=== PATIENT | female | born 1990 | race Hispanic/Latino ===

== ENCOUNTER 2016-09-05 22:15 | Emergency (ER) | payer SELFPAY ==
--- NOTE | 2016-09-05 23:48 | RAD ---
EXAM DESCRIPTION: Foot,Right 3 Views CLINICAL HISTORY: 26 years ,Female stepped awkward on stairs, heard pop COMPARISON: None. TECHNIQUE: RIGHT foot, Three view FINDINGS: No acute fractures or dislocations are identified. No osseous destructive lesions. No radiopaque foreign object noted. No significant ankle effusion noted. IMPRESSION: No acute fracture or dislocation is identified. Electronically signed by: Sasha Abdalla 09/05/2016 11:47 PM CDT
--- NOTE | 2016-09-06 00:03 | ED.PDOC ---
History of Present Illness - General Chief Complaint: Lower Extremity Injury Stated Complaint: Rt foot pain Time Seen by Provider: 09/05/16 23:57 Source: patient Exam Limitations: no limitations - History of Present Illness Initial Comments: Patient presents after she stepped off of the second step of some stairs and felt a "pop" in her foot. She has pain on the dorsal surface that radiates to the ankle, constant, worse with movement, better with rest, no previous injuries. She says that she cannot walk on it due to the pain. No other complaints. Timing/Duration: 1-3 hours Severity: moderate Improving Factors: rest Worsening Factors: movement Associated Symptoms: denies symptoms Allergies/Adverse Reactions: Allergies NO KNOWN ALLERGY Allergy (Verified 09/05/16 23:24) Home Medications: Ambulatory Orders Flagyl 09/05/16 Review of Systems - Review of Systems Constitutional: States: no symptoms reported EENTM: States: no symptoms reported Respiratory: States: no symptoms reported Cardiology: States: no symptoms reported Gastrointestinal/Abdominal: States: no symptoms reported Genitourinary: States: no symptoms reported Musculoskeletal: States: see HPI Skin: States: no symptoms reported Neurological: States: no symptoms reported Endocrine: States: no symptoms reported Hematologic/Lymphatic: States: no symptoms reported Past Medical History (General) - Patient Medical History Surgical History: no surgical history - Vaccination History Immunizations Up to Date: Yes - Female History Patient is a Female of Child Bearing Age (10 -59 yrs old): Yes Family Medical History - Family History Mother Family History: Unknown Physical Exam - Physical Exam General Appearance: Alert Respiratory: lungs clear Cardiovascular/Chest: normal peripheral pulses, regular rate, rhythm Gastrointestinal/Abdominal: normal bowel sounds, non tender, soft Extremity: normal range of motion, other - TTP on the dorsum of the right foot. There is pain with dorsiflexion and plantar flexion of the foot as well as flexion and extension of the toes, but the patient has 5/5 strength with all of these movements. Capillary refill less than 2 seconds. 2+ dorsal pedis pulses. Neurologic: no motor/sensory deficits Skin Exam: normal color Progress - Progress Progress: 09/06/16 00:05 Radiographs of the right foot show no fractures, dislocations, nor abnormalities. Departure - Departure Clinical Impression: Sprain of foot Disposition: Discharge to Home or Self Care Condition: Good Departure Forms: ED Discharge - Pt. Copy, Patient Portal Self Enrollment Diet: resume usual diet Activity: increase activity as tolerated Home Medications: Ambulatory Orders Flagyl 09/05/16 Additional Instructions: Use crutches for first three days then go back to walking as tolerated. Use NICK wrap during the day for first three days. Elevate the foot while sleeping for three days. Ice to the painful area three times per day for three days then switch to heat twice per day until healed. May use tylenol or ibuprofen for pain control. Return to your regular doctor if pain has not resolved in two weeks.
[2016-09-06 00:55] VITALS: BP 122/72; TEMP 98; O2SAT 100
== END 2016-09-06 00:55 | disposition home or self-care (01) ==
LOC: ER 22:15
DX: S93.609A Unspecified sprain of unspecified foot, initial encounter (principal); X58.XXXA Exposure to other specified factors, initial encounter; Y99.9 Unspecified external cause status

== ENCOUNTER → 2017-06-01 | Outpatient (CLI) | payer OTHER ==
--- NOTE | 2017-06-01 20:33 | RAD ---
EXAM DESCRIPTION: Barium Swallow: Rad-Fluoroscopy. CLINICAL HISTORY: DIFFICULTY SWALLOWING. Patient says she has to push tablets and pills back into her throat in order to swallow them. COMPARISON: None TECHNIQUE: The patient swallowed gas-producing granules, water, and heavy density barium under fluoroscopic visualization. The images were obtained with the patient standing and horizontal. Patient drank medium density barium through a straw in the semi-prone position. 10 fluoroscopic cine loops. 3 static fluoroscopic images. Total fluoroscopy time was 2.1 minutes. DAP: 129.71 Gy-cm2.. FINDINGS: No gross abnormalities noted in the swallowing mechanism. No laryngeal penetration or aspiration. However it was noted that the patient had to double swallow every time to clear the oral cavity. No mass effect on the oropharyngeal tract. The primary peristaltic wave appears normal in the proximal two thirds of the esophagus. In the distal third, the mechanism decreases and secondary contractions are noted as well as reflux from the distal esophagus to the mid esophagus. No mass effect and no hiatal hernia. Gastroesophageal sphincter is patent. No reflux from the stomach into the esophagus. IMPRESSION: 1. Patient double swallows to empty the oral cavity. No mass effect on the oral pharyngeal tract. No laryngeal penetration or aspiration. 2. Primary peristaltic wave ends at the junction of the mid third and distal third esophagus with decreased propulsion and secondary contractions and reflux in the distal third to the middle third. No reflux from the stomach. No mass effect on the esophagus. 3. No hiatal hernia. No mass effect on the stomach. Electronically signed by: Reuben Arriaza MD 06/01/2017 8:32 PM CDT Workstation: [id number]
== END ==
LOC: RAD 12:00
PROVIDERS: ATTEND Nurse Practitioner Family
DX: R13.10 Dysphagia, unspecified (principal)

== ENCOUNTER → 2017-08-21 | Outpatient (CLI) | payer OTHER ==
--- NOTE | 2017-08-21 11:58 | MRI ---
EXAM DESCRIPTION: Brain w/wo Contrast: Magnetic Resonance Imaging. CLINICAL HISTORY: H47.11. Papilledema associated with increased intracranial pressure. COMPARISON: None. TECHNIQUE: Multiplanar, high-field MRI, multiple conventional sequences, without and with gadolinium IV contrast. No adverse reactions. Multiple axial diffusion sequences. FINDINGS: Normal, bilateral FLAIR and T2-weighted signal in the periventricular white matter and gentile-white matter junctions of the cerebral hemispheres. . No hemorrhage, no abnormal contrast enhancement, no diffusion restriction. Normal signal in the bilateral basal ganglia. basal ganglia. No hemorrhage, no cerebral edema, no mass-effect. Normal contrast enhancement. Normal signal in the brainstem and cerebellar hemispheres. No hemorrhage, no cerebral edema, no mass-effect. Normal contrast enhancement. Concordance of the diffusion and non-diffusion sequences with no evidence of acute or subacute infarction. Cortical sulci, ventricles, and other CSF spaces, and the subdural spaces are normally configured for patients age.. No effacement or displacement. No midline shift. No extra-axial hemorrhage. Normal contrast enhancement. Normal flow signal void in the major vessels of the saxman Pizano, and the venous sinuses. IACs are symmetric bilaterally. Normal signal in the bilateral mastoid air cells. No mass effect in the bilateral Cerebellopontine angles. Normal contrast enhancement. Pituitary gland occupies most of the sella. No CSF signal in the sella. Normal contrast enhancement. Base of the cerebellar tonsils is above the foramen magnum. Minimal mucosal periosteal thickening in the paranasal sinuses. Normal contrast enhancement. The bony calvarium is intact. Minimal fluid signal in the bilateral optic nerve sheaths. No abnormal enhancement. IMPRESSION: Normal MRI scan of the intra-axial brain without and with gadolinium IV contrast. Minimal edema in the bilateral optic nerve sheaths without enhancement. No orbital mass. No suprasellar mass or abnormal enhancement in the region of the optic chiasm. Electronically signed by: Reuben Arriaza MD 08/21/2017 11:57 AM CDT
== END ==
LOC: MRI 08:00
PROVIDERS: ATTEND Nurse Practitioner Family
DX: H47.11 Papilledema associated with increased intracranial pressure (principal)